=== PATIENT | female | born 1975 | race Native Hawaiian/Other Pacific Islander ===

== ENCOUNTER 2016-11-16 00:43 | Emergency (ER) | payer BC ==
[~2016-11-16] VITALS: Ht 162.6 cm; Wt 100.7 kg
== END 2016-11-16 01:35 | disposition home or self-care (01) ==
LOC: ED 00:43
DX: H60.592 Other noninfective acute otitis externa, left ear (principal); H92.02 Otalgia, left ear
CPT/HCPCS: 96372; 99282; J0696

== ENCOUNTER 2021-01-01 10:28 | Outpatient (CLI) | payer BC | END 2021-01-01 22:10 | disposition home or self-care (01) | LOC: US 10:28 | PROVIDERS: ATTEND Family Medicine | DX: N94.4 Primary dysmenorrhea (principal) ==

== ENCOUNTER 2022-02-27 08:32 | Outpatient (CLI) | payer BC | END 2022-02-27 19:39 | disposition home or self-care (01) | LOC: US 08:32 | PROVIDERS: ATTEND Family Medicine | DX: R31.21 Asymptomatic microscopic hematuria (principal) ==

== ENCOUNTER 2022-02-28 07:50 | Outpatient (CLI) | payer BC | END 2022-02-28 21:34 | disposition home or self-care (01) | LOC: LABW 07:50 | PROVIDERS: ATTEND Nurse Practitioner Family | DX: R80.9 Proteinuria, unspecified (principal) | CPT/HCPCS: 84156 ==

== ENCOUNTER 2022-03-27 22:36 | Emergency (ER) | payer BC ==
[~2022-03-27] VITALS: Ht 162.6 cm; Wt 88.0 kg
[2022-03-28 00:30] LABS: POTASSIUM 4.4 mmol/L (3.6-5.2)
[2022-03-28 00:58] LABS: PLATELET COUNT 270 K/uL (152-353)
[2022-03-28 02:10] VITALS: BP 130/77; TEMP 97.9
== END 2022-03-28 02:15 | disposition home or self-care (01) ==
LOC: ED 22:36
PROVIDERS: Family Medicine
DX: E86.0 Dehydration (principal); R14.3 Flatulence; R10.84 Generalized abdominal pain
CPT/HCPCS: 36415; 80053; 81000; 85027; 96360; 99284

== ENCOUNTER 2022-05-09 12:55 | Outpatient (CLI) | payer BC | END 2022-05-09 19:05 | disposition home or self-care (01) | LOC: US 12:55 | PROVIDERS: ATTEND Family Medicine | DX: R31.9 Hematuria, unspecified (principal) ==

== ENCOUNTER 2022-05-13 07:50 | Outpatient (CLI) | payer BC | END 2022-05-13 19:28 | disposition home or self-care (01) | LOC: CT 07:50 | PROVIDERS: ATTEND Family Medicine | DX: N13.39 Other hydronephrosis (principal) ==

== ENCOUNTER 2022-12-17 08:17 | Outpatient (CLI) | payer BC | END 2022-12-17 20:34 | disposition home or self-care (01) | LOC: MAMMO 08:17 | PROVIDERS: ATTEND Family Medicine | DX: Z12.31 Encounter for screening mammogram for malignant neoplasm of breast (principal) ==